=== PATIENT | male | born 1970 | race Caucasian/White ===

== ENCOUNTER 2016-10-20 13:02 | Inpatient (IN) | payer OTHER ==
[2016-10-20 16:03] VITALS: BMI 24.6
--- NOTE | 2016-10-20 16:54 | HP ---
CIWA Score - CIWA Score Nausea/Vomitin Muscle Tremors: 3 Anxiety: 3 Agitation: 3 Paroxysmal Sweats: 2 Orientation: 0-Oriented Tacttile Disturbances: 2-Mild Itch/Numbness/Burn Auditory Disturbances: 2-Mild Harshness/Frighten Visual Disturbances: 2-Mild Sensitivity Headache: 2-Mild CIWA-Ar Total Score: 22 Admission ROS BHS - HPI Chief Complaint: i need help to stop drinking alcohol Allergies/Adverse Reactions: Allergies Allergy/AdvReac Type Severity Reaction Status Date / Time No Known Allergies Allergy Verified 10/20/16 17:12 History of Present Illness: this 46 years old male with alcohol dependence,withdrawal symptom,never been in detox before syncope alcohol related need help to stop drinking - Ebola screening Have you traveled outside of the country in the last 21 days: No Have you been sick,other than usual withdrawal symptoms: No - Review of Systems Constitutional: Loss of Appetite, Malaise, Night Sweats, Changes in sleep, Weakness EENT: reports: Nose Congestion Respiratory: reports: No Symptoms reported Cardiac: reports: Palpitations GI: reports: Diarrhea, Nausea, Vomiting, Abdominal cramping : reports: No Symptoms Reported Musculoskeletal: reports: Back Pain, Muscle Pain Integumentary: reports: Dryness Neuro: reports: Headache, Tremors Endocrine: reports: No Symptoms Reported Hematology: reports: No Symptoms Reported Psychiatric: reports: No Sypmtoms Reported, Judgement Intact, Mood/Affect Appropiate, Orientated x3 Patient History - Patient Medical History Hx Anemia: No Hx Asthma: No Hx Chronic Obstructive Pulmonary Disease (COPD): No Hx Cancer: No Hx Cardiac Disorders: No Hx Congestive Heart Failure: No Hx Hypertension: No Hx Hypercholesterolemia: No Hx Pacemaker: No HX Cerebrovascular Accident: No Hx Seizures: No Hx Dementia: No Hx Diabetes: No Hx Gastrointestinal Disorders: No Hx Liver Disease: No Hx Genitourinary Disorders: No Hx Sexually Transmitted Disorders: No Hx Renal Disease (ESRD): No Hx Thyroid Disease: No Hx Human Immunodeficiency Virus (HIV): No (never been tested before) Hx Hepatitis C: No Hx Depression: No Hx Suicide Attempt: No Hx Bipolar Disorder: No Hx Schizophrenia: No Other Medical History: no suicidal,no homicidal,old fx left ribs and pneumothorax post chest tube - Patient Surgical History Past Surgical History: Yes Hx Lung Surgery: Yes (fx left ribs with pneumothorax post chest tube insertion) - PPD History Previous Implant?: Yes Documented Results: Negative w/o proof Implanted On Prior [facility] Admission?: No PPD to be Administered?: Yes - Smoking Cessation Smoking history: Never smoked - Substance & Tx. History Hx Alcohol Use: Yes Hx Substance Use: No Substance Use Type: Alcohol Hx Substance Use Treatment: No - Substances Abused Alcohol Route: Oral Frequency: Daily Amount used: 3 24 OZ BEERS Age of first use: 19 Date of Last Use: 10/19/16 Family Disease History - Family Disease History Family Disease History: Other: Father (alcohol,), Mother (alcohol, ) Admission Physical Exam [facility] - Vital Signs Vital Signs: Vital Signs - 24 hr 10/20/16 16:02 Temperature 97.1 F L Pulse Rate 111 H Respiratory 20 Rate Blood Pressure 143/99 - Physical General Appearance: Yes: Moderate Distress, Tremorous, Irritable, Sweating, Anxious HEENTM: Yes: Normal ENT Inspection, Pharynx Normal, Nasal Congestion, Rhinorrhea Respiratory: Yes: Lungs Clear, Normal Breath Sounds, No Respiratory Distress, Other (old fx left ribs s/p pneumothorax post chest tube) Neck: Yes: Within Normal Limits Breast: Yes: Within Normal Limits Cardiology: Yes: Tachycardia Abdominal: Yes: Within Normal Limits, Normal Bowel Sounds, Non Tender, Flat, Soft Genitourinary: Yes: Within Normal Limits Back: Yes: Muscle Spasm Musculoskeletal: Yes: Back pain, Muscle Pain Extremities: Yes: Tremors Neurological: 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: 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 NML intact, Fully Oriented, Alert, Motor Strength 5/5, Normal Mood/Affect, Normal Response Integumentary: Yes: Dry Lymphatic: Yes: Within Normal Limits - Diagnostic (1) Alcohol dependence with uncomplicated withdrawal Current Visit: Yes Status: Acute (2) Syncope Current Visit: Yes Status: Acute (3) Left rib fracture Current Visit: Yes Status: Acute (4) Pneumothorax on left Current Visit: Yes Status: Acute (5) Status post chest tube placement Current Visit: Yes Status: Acute Cleared for Admission [facility] - Detox or Rehab [facility] Level of Care: Medically Managed Detox Regimen/Protocol: Librium [facility] Breath Alcohol Content Breath Alcohol Content: 0
[2016-10-20] MEDS ORDERED: LOPERAMIDE HCL 2 MG CAPSULE PO PRN (17:34)
[2016-10-20] MEDS ORDERED: MAG HYDROX/AL HYDROX/SIMETH 30 ML UNIT-DOSE CUP PO PRN (17:34)
[2016-10-20] MEDS ORDERED: MENTHOL/PHENOL 1 EACH UD MM PRN (17:34)
[2016-10-20] MEDS ORDERED: MAGNESIUM HYDROX 2400MG/30ML ORAL SUSPENSION 30 ML CUP PO PRN (17:34)
[2016-10-20] MEDS ORDERED: ACETAMINOPHEN 325 MG TABLET (FP) PO PRN (17:34)
[2016-10-20] MEDS ORDERED: guaiFENesin/D-METHORPHAN HB 10 ML UNIT-DOSE CUPS PO PRN (17:34)
[2016-10-20] MEDS ORDERED: IBUPROFEN 400 MG TABLET (FP) PO PRN (17:34)
[2016-10-20] MEDS ORDERED: MAGNESIUM CITRATE 300 ML BOTTLE PO PRN (17:34)
[2016-10-20] MEDS ORDERED: hydrOXYzine PAMOATE 50 MG CAPSULE (FP) PO PRN (17:34)
[2016-10-20] MEDS ORDERED: P-EPHED 60MG/TRIPROLIDI 2.5MG TABLET PO PRN (17:34)
[2016-10-20] MEDS ORDERED: chlordiazePOXIDE HCL 25 MG CAPSULE PO PRN (19:43)
[2016-10-20 21:08] LABS: MCH 29.1 pg (25.7-33.7); MCHC 33.2 g/dl (32.0-35.9); MEAN CELL VOLUME 87.5 fl (80-96); MEAN PLT VOLUME 8.2 fl (7.5-11.1); PLATELET COUNT 264 K/MM3 (134-434); RDW 16.5 % (11.9-15.9); WHITE BLOOD COUNT 7.1 K/mm3 (4.0-10.0)
[2016-10-20 21:21] LABS: ALBUMIN 4.2 g/dl (3.4-5.0); ANION GAP 13 (8-16); CALCIUM 9.4 mg/dL (8.5-10.1); CO2 25 mmol/L (21-32); GLUCOSE,RANDOM 97 mg/dL (74-106)
[2016-10-20 21:24] LABS: ALK PHOS 88 U/L (45-117); BILIRUBIN,TOTAL 0.5 mg/dL (0.2-1.0); CREATININE 0.8 mg/dL (0.7-1.3); SGOT/AST 106 U/L (15-37); SGPT/ALT 110 U/L (12-78)
[2016-10-20] MEDS: chlordiazePOXIDE HCL 25 MG CAPSULE PO SCH (22:31)
[2016-10-20] MEDS: THIAMINE HCL 100 MG TABLET (FP) PO SCH (22:31)
[2016-10-20] MEDS: diphenhydrAMINE HCL 50 MG CAPSULE PO PRN (22:32)
[2016-10-20 23:09] LABS: URINE APPEARANCE CLEAR; URINE BILIRUBIN NEGATIVE (NEGATIVE); URINE BLOOD NEGATIVE (NEGATIVE); URINE COLOR YELLOW; URINE GLUCOSE (UA) NEGATIVE (NEGATIVE); URINE KETONE NEGATIVE (NEGATIVE); URINE LEUK ESTERASE NEGATIVE (NEGATIVE); URINE NITRITE NEGATIVE (NEGATIVE); URINE PROTEIN NEGATIVE (NEGATIVE); URINE UROBILINOGEN NEGATIVE E.U./dl (0.2-1.0)
[2016-10-21] MEDS: chlordiazePOXIDE HCL 25 MG CAPSULE PO SCH ×4 (05:37→22:40)
[2016-10-21] MEDS: PRENATAL VITAMINS W/ FOLIC ACID TABLET (FP) PO SCH (10:41)
--- NOTE | 2016-10-21 10:47 | PN ---
[facility] CIWA - CIWA Score Nausea/Vomitin-No Nausea/No Vomiting Muscle Tremors: 4-Moderate,w/Arms Extend Anxiety: 4-Mod. Anxious/Guarded Agitation: 4-Moderately Restless Paroxysmal Sweats: 1-Minimal Palms Moist Orientation: 0-Oriented Tacttile Disturbances: 3-Moderate Itch/Numb/Burn Auditory Disturbances: 0-None Visual Disturbances: 0-None Headache: 0-None Present CIWA-Ar Total Score: 16 BHS Progress Note (SOAP) Subjective: ANXIETY,TREMORS,CHILLS. Objective: 10/21/16 10:46 Vital Signs Temperature 96.7 F L 10/21/16 09:43 Pulse Rate 112 H 10/21/16 09:43 Respiratory Rate 18 10/21/16 09:43 Blood Pressure 122/88 10/21/16 09:43 O2 Sat by Pulse Oximetry (%) Laboratory Last Values WBC 7.1 K/mm3 (4.0-10.0) 10/20/16 13:00 RBC 5.00 M/mm3 (4.00-5.60) 10/20/16 13:00 Hgb 14.5 GM/dL (11.7-16.9) 10/20/16 13:00 Hct 43.7 % (35.4-49) 10/20/16 13:00 MCV 87.5 fl (80-96) 10/20/16 13:00 MCHC 33.2 g/dl (32.0-35.9) 10/20/16 13:00 RDW 16.5 % (11.9-15.9) H 10/20/16 13:00 Plt Count 264 K/MM3 (134-434) 10/20/16 13:00 MPV 8.2 fl (7.5-11.1) 10/20/16 13:00 Sodium 140 mmol/L (136-145) 10/20/16 13:00 Potassium 4.2 mmol/L (3.5-5.1) 10/20/16 13:00 Chloride 102 mmol/L (98-107) 10/20/16 13:00 Carbon Dioxide 25 mmol/L (21-32) 10/20/16 13:00 Anion Gap 13 (8-16) 10/20/16 13:00 BUN 7 mg/dL (7-18) 10/20/16 13:00 Creatinine 0.8 mg/dL (0.7-1.3) 10/20/16 13:00 Creat Clearance w eGFR > 60 (>60) 10/20/16 13:00 Random Glucose 97 mg/dL (74-106) 10/20/16 13:00 Calcium 9.4 mg/dL (8.5-10.1) 10/20/16 13:00 Total Bilirubin 0.5 mg/dL (0.2-1.0) 10/20/16 13:00 AST 106 U/L (15-37) H 10/20/16 13:00 ALT 110 U/L (12-78) H 10/20/16 13:00 Alkaline Phosphatase 88 U/L (45-117) 10/20/16 13:00 Total Protein 8.0 g/dl (6.4-8.2) 10/20/16 13:00 Albumin 4.2 g/dl (3.4-5.0) 10/20/16 13:00 Urine Color Yellow 10/20/16 23:00 Urine Appearance Clear 10/20/16 23:00 Urine pH 6.0 (5.0-8.0) 10/20/16 23:00 Ur Specific [place] 1.012 (1.001-1.035) 10/20/16 23:00 Urine Protein Negative (NEGATIVE) 10/20/16 23:00 Urine Glucose (UA) Negative (NEGATIVE) 10/20/16 23:00 Urine Ketones Negative (NEGATIVE) 10/20/16 23:00 Urine Blood Negative (NEGATIVE) 10/20/16 23:00 Urine Nitrite Negative (NEGATIVE) 10/20/16 23:00 Urine Bilirubin Negative (NEGATIVE) 10/20/16 23:00 Urine Urobilinogen Negative E.U./dl (0.2-1.0) 10/20/16 23:00 Ur Leukocyte Esterase Negative (NEGATIVE) 10/20/16 23:00 Assessment: 10/21/16 10:46 WITHDRAWAL SX Plan: CONTINUE DETOX INCREASE PO FLUIDS
[2016-10-21 12:03] LABS: HIV 1 & 2 AB NEGATIVE; HIV 1 AGp24 NEGATIVE
[2016-10-21] MEDS: THIAMINE HCL 100 MG TABLET (FP) PO SCH (22:40)
[2016-10-21] MEDS: diphenhydrAMINE HCL 50 MG CAPSULE PO PRN (22:40)
[2016-10-22] MEDS: chlordiazePOXIDE HCL 25 MG CAPSULE PO SCH ×3 (05:52→17:39)
[2016-10-22] MEDS: PRENATAL VITAMINS W/ FOLIC ACID TABLET (FP) PO SCH (10:34)
--- NOTE | 2016-10-22 11:50 | PN ---
[facility] CIWA - CIWA Score Nausea/Vomitin-No Nausea/No Vomiting Muscle Tremors: 3 Anxiety: 4-Mod. Anxious/Guarded Agitation: 4-Moderately Restless Paroxysmal Sweats: 1-Minimal Palms Moist Orientation: 0-Oriented Tacttile Disturbances: 3-Moderate Itch/Numb/Burn Auditory Disturbances: 0-None Visual Disturbances: 0-None Headache: 0-None Present CIWA-Ar Total Score: 15 S Progress Note (SOAP) Subjective: ANXIETY,SLIGHT TREMORS.SWEATS. Objective: 10/22/16 11:50 Vital Signs Temperature 96.6 F L 10/22/16 09:43 Pulse Rate 114 H 10/22/16 09:43 Respiratory Rate 18 10/22/16 09:43 Blood Pressure 133/91 10/22/16 09:43 O2 Sat by Pulse Oximetry (%) Laboratory Last Values WBC 7.1 K/mm3 (4.0-10.0) 10/20/16 13:00 RBC 5.00 M/mm3 (4.00-5.60) 10/20/16 13:00 Hgb 14.5 GM/dL (11.7-16.9) 10/20/16 13:00 Hct 43.7 % (35.4-49) 10/20/16 13:00 MCV 87.5 fl (80-96) 10/20/16 13:00 MCHC 33.2 g/dl (32.0-35.9) 10/20/16 13:00 RDW 16.5 % (11.9-15.9) H 10/20/16 13:00 Plt Count 264 K/MM3 (134-434) 10/20/16 13:00 MPV 8.2 fl (7.5-11.1) 10/20/16 13:00 Sodium 140 mmol/L (136-145) 10/20/16 13:00 Potassium 4.2 mmol/L (3.5-5.1) 10/20/16 13:00 Chloride 102 mmol/L (98-107) 10/20/16 13:00 Carbon Dioxide 25 mmol/L (21-32) 10/20/16 13:00 Anion Gap 13 (8-16) 10/20/16 13:00 BUN 7 mg/dL (7-18) 10/20/16 13:00 Creatinine 0.8 mg/dL (0.7-1.3) 10/20/16 13:00 Creat Clearance w eGFR > 60 (>60) 10/20/16 13:00 Random Glucose 97 mg/dL (74-106) 10/20/16 13:00 Calcium 9.4 mg/dL (8.5-10.1) 10/20/16 13:00 Total Bilirubin 0.5 mg/dL (0.2-1.0) 10/20/16 13:00 AST 106 U/L (15-37) H 10/20/16 13:00 ALT 110 U/L (12-78) H 10/20/16 13:00 Alkaline Phosphatase 88 U/L (45-117) 10/20/16 13:00 Total Protein 8.0 g/dl (6.4-8.2) 10/20/16 13:00 Albumin 4.2 g/dl (3.4-5.0) 10/20/16 13:00 Urine Color Yellow 10/20/16 23:00 Urine Appearance Clear 10/20/16 23:00 Urine pH 6.0 (5.0-8.0) 10/20/16 23:00 Ur Specific [place] 1.012 (1.001-1.035) 10/20/16 23:00 Urine Protein Negative (NEGATIVE) 10/20/16 23:00 Urine Glucose (UA) Negative (NEGATIVE) 10/20/16 23:00 Urine Ketones Negative (NEGATIVE) 10/20/16 23:00 Urine Blood Negative (NEGATIVE) 10/20/16 23:00 Urine Nitrite Negative (NEGATIVE) 10/20/16 23:00 Urine Bilirubin Negative (NEGATIVE) 10/20/16 23:00 Urine Urobilinogen Negative E.U./dl (0.2-1.0) 10/20/16 23:00 Ur Leukocyte Esterase Negative (NEGATIVE) 10/20/16 23:00 RPR Titer Nonreactive (NONREACTIVE) 10/20/16 13:00 HIV 1&2 Antibody Screen Negative 10/20/16 17:21 HIV P24 Antigen Negative 10/20/16 17:21 Assessment: 10/22/16 11:50 WITHDRAWAL SX Plan: CONTINUE DETOX
--- NOTE | 2016-10-22 13:18 | EKG ---
Test Reason : Blood Pressure : / mmHG Vent. Rate : 117 BPM Atrial Rate : 117 BPM P-R Int : 156 ms QRS Dur : 090 ms QT Int : 344 ms P-R-T Axes : 057 027 044 degrees QTc Int : 479 ms SINUS TACHYCARDIA OTHERWISE NORMAL ECG NO PREVIOUS ECGS AVAILABLE Confirmed by CANDE RICE, CELIA ([id number]) on 10/22/2016 1:18:28 PM Referred By: Confirmed By:CELIA CASTELLON MD
[2016-10-22] MEDS: chlordiazePOXIDE 5 MG CAPSULE PO SCH (22:50)
[2016-10-22] MEDS: diphenhydrAMINE HCL 50 MG CAPSULE PO PRN (22:51)
[2016-10-22] MEDS: THIAMINE HCL 100 MG TABLET (FP) PO SCH (22:51)
[2016-10-23] MEDS: chlordiazePOXIDE 5 MG CAPSULE PO SCH ×3 (05:35→17:20)
[2016-10-23 10:17] LABS: INR 0.94 (0.82-1.09); PROTHROMBIN TIME (PATIENT) 10.3 SEC (9.98-11.88)
[2016-10-23 10:40] LABS: SGOT/AST 34 U/L (15-37); SGPT/ALT 67 U/L (12-78)
[2016-10-23] MEDS: PRENATAL VITAMINS W/ FOLIC ACID TABLET (FP) PO SCH (10:41)
--- NOTE | 2016-10-23 12:48 | PN ---
BHS Progress Note (SOAP) Subjective: DETOX MEDS EFFECTIVE PER PT. DECREASED ANXIETY,TREMORS. Objective: 10/23/16 12:47 Vital Signs Temperature 97.4 F L 10/23/16 10:05 Pulse Rate 100 H 10/23/16 10:05 Respiratory Rate 20 10/23/16 10:05 Blood Pressure 141/94 10/23/16 10:05 O2 Sat by Pulse Oximetry (%) Laboratory Last Values WBC 7.1 K/mm3 (4.0-10.0) 10/20/16 13:00 RBC 5.00 M/mm3 (4.00-5.60) 10/20/16 13:00 Hgb 14.5 GM/dL (11.7-16.9) 10/20/16 13:00 Hct 43.7 % (35.4-49) 10/20/16 13:00 MCV 87.5 fl (80-96) 10/20/16 13:00 MCHC 33.2 g/dl (32.0-35.9) 10/20/16 13:00 RDW 16.5 % (11.9-15.9) H 10/20/16 13:00 Plt Count 264 K/MM3 (134-434) 10/20/16 13:00 MPV 8.2 fl (7.5-11.1) 10/20/16 13:00 INR 0.94 (0.82-1.09) 10/23/16 07:00 Sodium 140 mmol/L (136-145) 10/20/16 13:00 Potassium 4.2 mmol/L (3.5-5.1) 10/20/16 13:00 Chloride 102 mmol/L (98-107) 10/20/16 13:00 Carbon Dioxide 25 mmol/L (21-32) 10/20/16 13:00 Anion Gap 13 (8-16) 10/20/16 13:00 BUN 7 mg/dL (7-18) 10/20/16 13:00 Creatinine 0.8 mg/dL (0.7-1.3) 10/20/16 13:00 Creat Clearance w eGFR > 60 (>60) 10/20/16 13:00 Random Glucose 97 mg/dL (74-106) 10/20/16 13:00 Calcium 9.4 mg/dL (8.5-10.1) 10/20/16 13:00 Total Bilirubin 0.5 mg/dL (0.2-1.0) 10/20/16 13:00 AST 34 U/L (15-37) D 10/23/16 07:00 ALT 67 U/L (12-78) D 10/23/16 07:00 Alkaline Phosphatase 88 U/L (45-117) 10/20/16 13:00 Total Protein 8.0 g/dl (6.4-8.2) 10/20/16 13:00 Albumin 4.2 g/dl (3.4-5.0) 10/20/16 13:00 Urine Color Yellow 10/20/16 23:00 Urine Appearance Clear 10/20/16 23:00 Urine pH 6.0 (5.0-8.0) 10/20/16 23:[address] [employer] [place] 1.012 (1.001-1.035) 10/20/16 23:00 Urine Protein Negative (NEGATIVE) 10/20/16 23:00 Urine Glucose (UA) Negative (NEGATIVE) 10/20/16 23:00 Urine Ketones Negative (NEGATIVE) 10/20/16 23:00 Urine Blood Negative (NEGATIVE) 10/20/16 23:00 Urine Nitrite Negative (NEGATIVE) 10/20/16 23:00 Urine Bilirubin Negative (NEGATIVE) 10/20/16 23:00 Urine Urobilinogen Negative E.U./dl (0.2-1.0) 10/20/16 23:00 Ur Leukocyte Esterase Negative (NEGATIVE) 10/20/16 23:00 RPR Titer Nonreactive (NONREACTIVE) 10/20/16 13:00 Hepatitis C Antibody 0.1 s/co ratio (0.0-0.9) 10/20/16 14:00 HIV 1&2 Antibody Screen Negative 10/20/16 17:21 HIV P24 Antigen Negative 10/20/16 17:21 Assessment: 10/23/16 12:47 DECREASED WITHDRAWAL SX Plan: CONTINUE DETOX
[2016-10-23] MEDS: THIAMINE HCL 100 MG TABLET (FP) PO SCH (22:44)
[2016-10-23] MEDS: chlordiazePOXIDE HCL 10 MG CAPSULE PO SCH (22:45)
[2016-10-23] MEDS: diphenhydrAMINE HCL 50 MG CAPSULE PO PRN (22:45)
[2016-10-24] MEDS: chlordiazePOXIDE HCL 10 MG CAPSULE PO SCH (05:57)
[2016-10-24] MEDS: PRENATAL VITAMINS W/ FOLIC ACID TABLET (FP) PO SCH (09:16)
[2016-10-24 10:45] VITALS: BP 145/81; PULSE 123; TEMP 98
--- NOTE | 2016-10-24 12:21 | DS ---
[facility] Detox Discharge Summary Admission Date: 10/20/16 Discharge Date: 10/24/16 - History Present History: Alcohol Dependence Additional Comments: DETOX COMPLETED,NAD. Pertinent Past History: HX LEFT RIB FRACTURE S/P CHEST TUBE HX LEFT PNEUMOTHORAX - Physical Exam Results Vital Signs: Vital Signs Temperature 98 F 10/24/16 10:44 Pulse Rate 123 H 10/24/16 10:44 Respiratory Rate 20 10/24/16 10:44 Blood Pressure 145/81 10/24/16 10:44 O2 Sat by Pulse Oximetry (%) Pertinent Admission Physical Exam Findings: WITHDRAWAL SX Laboratory Last Values WBC 7.1 K/mm3 (4.0-10.0) 10/20/16 13:00 RBC 5.00 M/mm3 (4.00-5.60) 10/20/16 13:00 Hgb 14.5 GM/dL (11.7-16.9) 10/20/16 13:00 Hct 43.7 % (35.4-49) 10/20/16 13:00 MCV 87.5 fl (80-96) 10/20/16 13:00 MCHC 33.2 g/dl (32.0-35.9) 10/20/16 13:00 RDW 16.5 % (11.9-15.9) H 10/20/16 13:00 Plt Count 264 K/MM3 (134-434) 10/20/16 13:00 MPV 8.2 fl (7.5-11.1) 10/20/16 13:00 INR 0.94 (0.82-1.09) 10/23/16 07:00 Sodium 140 mmol/L (136-145) 10/20/16 13:00 Potassium 4.2 mmol/L (3.5-5.1) 10/20/16 13:00 Chloride 102 mmol/L (98-107) 10/20/16 13:00 Carbon Dioxide 25 mmol/L (21-32) 10/20/16 13:00 Anion Gap 13 (8-16) 10/20/16 13:00 BUN 7 mg/dL (7-18) 10/20/16 13:00 Creatinine 0.8 mg/dL (0.7-1.3) 10/20/16 13:00 Creat Clearance w eGFR > 60 (>60) 10/20/16 13:00 Random Glucose 97 mg/dL (74-106) 10/20/16 13:00 Calcium 9.4 mg/dL (8.5-10.1) 10/20/16 13:00 Total Bilirubin 0.5 mg/dL (0.2-1.0) 10/20/16 13:00 AST 34 U/L (15-37) D 10/23/16 07:00 ALT 67 U/L (12-78) D 10/23/16 07:00 Alkaline Phosphatase 88 U/L (45-117) 10/20/16 13:00 Total Protein 8.0 g/dl (6.4-8.2) 10/20/16 13:00 Albumin 4.2 g/dl (3.4-5.0) 10/20/16 13:00 Urine Color Yellow 10/20/16 23:00 Urine Appearance Clear 10/20/16 23:00 Urine pH 6.0 (5.0-8.0) 10/20/16 23:00 Ur Specific [place] 1.012 (1.001-1.035) 10/20/16 23:00 Urine Protein Negative (NEGATIVE) 10/20/16 23:00 Urine Glucose (UA) Negative (NEGATIVE) 10/20/16 23:00 Urine Ketones Negative (NEGATIVE) 10/20/16 23:00 Urine Blood Negative (NEGATIVE) 10/20/16 23:00 Urine Nitrite Negative (NEGATIVE) 10/20/16 23:00 Urine Bilirubin Negative (NEGATIVE) 10/20/16 23:00 Urine Urobilinogen Negative E.U./dl (0.2-1.0) 10/20/16 23:00 Ur Leukocyte Esterase Negative (NEGATIVE) 10/20/16 23:00 RPR Titer Nonreactive (NONREACTIVE) 10/20/16 13:00 Hepatitis C Antibody 0.1 s/co ratio (0.0-0.9) 10/20/16 14:00 HIV 1&2 Antibody Screen Negative 10/20/16 17:21 HIV P24 Antigen Negative 10/20/16 17:21 - Treatment Hospital Course: Detox Protocol Followed, Detoxed Safely, Responded well, Discharged Condition Good, Rehab Referral Accepted Patient has Accepted a Rehab Referral to: [place], [place] - Medication Discharge Medications: Ambulatory Orders NK [No Known Home Medication] 10/20/16 - Diagnosis (1) Alcohol dependence with uncomplicated withdrawal Status: Acute (2) Left rib fracture Status: Resolved (3) Pneumothorax on left Status: Resolved (4) Status post chest tube placement Status: Resolved (5) Syncope Status: Suspected - AMA Did Patient Leave Against Medical Advice: No
== END 2016-10-24 09:40 | disposition home or self-care (01) | DRG 775 ==
LOC: YASAS 13:02 → Y3N 18:05
PROVIDERS: ADMIT Internal Medicine Addiction Medicine; ATTEND Internal Medicine
PROC: HZ2ZZZZ Detoxification Services for Substance Abuse Treatment (ICD-10-PCS; principal; 2016-10-24)
DX: F10.230 Alcohol dependence with withdrawal, uncomplicated (principal); R55 Syncope and collapse; Z87.81 Personal history of (healed) traumatic fracture; Z87.09 Personal history of other diseases of the respiratory system
CPT/HCPCS: 36415; 80053; 81003; 84450; 84460; 85027; 85610; 86593; 87389; 93005; 93010